=== PATIENT | female | born 1965 | race Caucasian/White ===

== ENCOUNTER 2019-09-07 16:30 | Emergency (ER) | payer OTHER, SELFPAY ==
--- NOTE | ~2019-09-07 | XR_ITS ---
EXAMINATION: XR sacrum coccyx min 2V EXAM DATE: 09/07/2019 17:14 INDICATION: Tailbone pain, injury. Initial encounter. TECHNIQUE: Sacral frontal, lateral projections. There is no prior study for comparison. FINDINGS: There is cortical discontinuity at the distal aspect of the sacrum, could be coccygeal seg mentation or possibly acute nondisplaced fracture. Sacroiliac joints, sacral arcuate lines are intact . The soft tissue is unremarkable. IMPRESSION: Sacrococcygeal segmentation versus nondisplaced fracture. Reviewed, dictated and finalized at location A.
--- NOTE | 2019-09-07 16:51 | ED.BACK ---
HPI - Back Pain/Injury General Chief Complaint: Back Pain/Injury Stated Complaint: Fall Tailbone Pain Time Seen by Provider: 09/07/19 17:25 Source: patient and RN notes reviewed Mode of arrival: ambulatory Limitations: no limitations History of Present Illness HPI Narrative: 53-year-old female presents with concern for tailbone injury. Reports 2 weeks ago she fell down stairs at home causing low back pain. Reports 1 week later she flopped down into a chair causing worsening pain in her tailbone area. She denies loss of bowel or bladder function, weakness in any extremity, numbness or tingling in any extremity, fever, abdominal pain. MD elicited complaint: other (Coccyx pain) Related Data Home Medications Medication Instructions Recorded Confirmed rosuvastatin 5 mg PO DAILY 09/07/19 09/07/19 Allergies Allergy/AdvReac Type Severity Reaction Status Date / Time hydrocodone Allergy Unknown Anaphylaxis Verified 09/07/19 16:58 ibuprofen Allergy Unknown Anaphylaxis Verified 09/07/19 16:58 latex Allergy Unknown Rash Verified 09/07/19 16:58 Review of Systems Review of Systems: Narrative: CONSTITUTIONAL: Denies malaise, chills, sweats, or fever. CARDIOVASCULAR: Denies chest pain, palpitations RESPIRATORY: Denies dyspnea. GASTROINTESTINAL: Denies abdominal pain, nausea, vomiting. Denies loss of bowel function GENITOURINARY: Denies dysuria or hematuria. Denies loss of bladder function MUSCULOSKELETAL: Reports low back/coccyx pain NEUROLOGIC: Denies numbness, weakness All systems reviewed & are unremarkable except as noted in HPI and below PMFSH Comments At time of signature, agree with nursing past medical, surgical, social and family history. There is no relevant family history pertinent to the presenting complaint Exam Narrative: Exam Narrative: GENERAL: Well-appearing, well-nourished, and in no acute distress. HEAD: Normocephalic, atraumatic. EYES: PERRLA and EOMI. NECK: Supple. No lymphadenopathy. CHEST: Clear to auscultation. No respiratory distress. HEART: Regular rate and rhythm. Distal pulses palpable and equal, cap refill <3 seconds ABDOMEN: Soft, nontender, nondistended, normal active bowel sounds, no palpable or pulsatile masses. No CVA tenderness MUSCULOSKELETAL: Normal range of motion and strength in bilateral lower extremities; 5/5 strength with hip flexion and extension, dorsiflexion and extension, knee flexion and extension, plantar flexion and extension. Normal sensation in dermatomal distributions with sensitivity to light touch and pain. No midline back tenderness to palpation. No paraspinal tenderness. Transfers from lying to sitting to standing. SKIN: Warm, dry, no rash. NEURO: No focal deficits. Alert and oriented x3. Normal gait. PSYCH: Normal mood and affect Course Course Emergency Course: Patient is aware of diagnosis, understands and agrees to treatment plan. Anticipatory guidance given. Patient agrees to follow-up as directed and is aware of reasons to seek care at the emergency department. Portions of this record may have been created with voice recognition software Vital Signs Vital signs: Vital Signs Temperature 97.6 F 09/07/19 16:52 Pulse Rate 84 09/07/19 16:52 Respiratory Rate 14 09/07/19 16:52 Blood Pressure 130/66 09/07/19 16:52 Pulse Oximetry 100 09/07/19 16:52 Temperature 97.6 F 09/07/19 16:52 Pulse Rate 84 09/07/19 16:52 Respiratory Rate 14 09/07/19 16:52 Blood Pressure 130/66 09/07/19 16:52 Pulse Oximetry 100 09/07/19 16:52 Reviewed. Patient has been instructed to follow up with her primary care provider within the next week regarding her elevated blood pressure today. MDM - Back Pain/Injury MDM Narrative Medical decision making narrative: No risk factors or findings concerning for epidural abscess, diskitis, vertebral osteomyelitis, cord compression, cauda equina, or bone malignancy, AAA, or pyelonephritis. Patient instructed to consider furthe
[2019-09-07 16:52] VITALS: BP 130/66; PULSE 84; RESP 14; TEMP 36.4; O2SAT 100
== END 2019-09-07 17:47 | disposition home or self-care (01) ==
PROVIDERS: Emergency Provider Nurse Practitioner; PCP Physician Assistant
DX: S39.92XA Unspecified injury of lower back, initial encounter (principal); W10.9XXA Fall (on) (from) unspecified stairs and steps, initial encounter; E78.00 Pure hypercholesterolemia, unspecified
CPT/HCPCS: 72220; 99213; G0463